=== PATIENT | female | born 1955 | race Caucasian/White ===

== ENCOUNTER 2017-03-23 00:35 | Emergency (ER) | payer BC ==
[~2017-03-23] VITALS: Ht 154.9 cm; Wt 65.0 kg
[~2017-03-23 00:35] MED LIST: DENO60SO INJ; DIPH25CA65 PO; EPP3/2 IM; ONDA8TAB62 SL; SUMA50TA15 PO; TYLOTC500 PO
[2017-03-23 00:47] VITALS: TEMP 36.6; Ht 154.9 cm; Wt 65.0 kg
[2017-03-23] MEDS ORDERED: XYLOCAINE 1%/SOD BICARB 20 ML VIAL INFIL ONE (01:15)
[2017-03-23] MEDS ORDERED: AMOXICILLIN 250 MG CAP PO ONE (02:30)
[2017-03-23] MEDS ORDERED: AMOX500C3 PO (02:35)
--- NOTE | 2017-03-23 02:51 | EMERGENCY ROOM VISIT NOTE ---
History First contact with patient: 00:45 Chief Complaint: LACERATION/CUT (SUT/DERMABOND) Stated Complaint: LACERATION Nursing Triage Summary: Patient was walking to bathroom from bed, her knee gave out, she hit the corner of a dresser and has a laceration to right forehead. Patient also having left knee pain. Patient denies LOC with fall. History of Present Illness The patient is a 61 year old female who presents to the Emergency Room with complaints of fall at home that occurred approximately one hour ago. The patient got out of bed to go to the bathroom, and states that her left knee gave out. She fell, and strike the corner of a dresser, causing injury to her right forehead. The patient did not have loss of consciousness with the event. She is not on blood thinners. She has not had chest pain, chest tightness, shortness of breath, palpitations, lightheadedness, or dizziness before or after the event. She rates her current discomfort a 5/10, primarily along the right side forehead where she does have a laceration. Review of Systems More than 10 systems were reviewed and otherwise negative with the exception of history of present illness. Past Medical/Surgical History Medical Problems: (1) Ambrosio's esophagus (2) Benign neoplasm of colon (3) Carcinoma of breast (4) Cervical cancer (5) Migraine headache with aura (6) Osteoporosis Surgical Problems: (1) H/O colonoscopy (2) H/O esophagogastroduodenoscopy (3) History of modified radical mastectomy (4) Hx laparoscopic cholecystectomy (5) S/P partial hysterectomy (6) S/P tonsillectomy and adenoidectomy Family History Asthma MOTHER Diabetes mellitus SISTER FH: cancer FATHER (prostate, colon CA) BROTHER (Lymphoma, T-cell) FH: heart disease SISTER (triple bypass) FHx: Crohn's disease Hypertension MOTHER Social History Smoking Status: Never Smoker Alcohol Use: none Drug Use: none Marital Status: Housing Status: lives with family Occupation Status: retired Current/Historical Medications Scheduled Amoxicillin (Amoxil), 500 MG PO TID Denosumab (Prolia), 1 DOSE INJ Q6MO Diphenhydramine Hcl (Benadryl Allergy), 50 MG PO UD Epinephrine (Epipen), 0.3 MG IM UD Sumatriptan Succinate (Imitrex), 1 TAB PO UD Scheduled PRN Acetaminophen (Tylenol), 500-1,000 MG PO Q6 PRN for Pain Ondansetron Odt (Zofran Odt), 8 MG SL Q6H PRN for Nausea Allergies Coded Allergies: Naproxen (Verified Allergy, Severe, lip swelling, 02/22/16) Pantoprazole (Verified Allergy, Severe, rash, 02/22/16) Fentanyl (Verified Allergy, Mild, 02/22/16) Aspirin (Verified Allergy, Unknown, 02/22/16) Opioid Analgesics (Verified Allergy, Unknown, UNKNOWN, 02/22/16) Physical Exam Vital Signs Date Time Temp Pulse Resp B/P (MAP) Pulse Ox O2 Delivery O2 Flow Rate FiO2 03/23/17 00:47 36.6 101 19 126/71 98 Room Air Physical Exam VITALS: Vitals are noted on the nurse's note and reviewed by myself. Vital signs stable. GENERAL: Well-developed, well-nourished, white female, who is in no acute distress and resting comfortably. Patient is cooperative with the examination. HEAD: Fairly linear 4.0 cm laceration to the right superior forehead. This does gape and will require repair. There is minimal, but controllable bleeding EARS: External ear normal. External auditory canals clear, tympanic membranes pearly rose without erythema or effusion bilaterally. EYES: Pupils equal round and reactive to light and accommodation. Conjunctivae without injection, sclerae without icterus. Extraocular movements intact. NOSE: Patent, turbinates without inflammation or discharge. MOUTH: Mucous membranes moist. Tonsils are not enlarged. Pharynx without erythema, blood, or exudate. Uvula midline. Airway patent. NECK: Supple without nuchal rigidity. No lymphadenopathy. No thyromegaly. Cervical spine is nontender. HEART: Regular rate and rhythm without murmurs gallops or rubs. LUNGS: Clear to auscultation bilaterally without wheezes, rales or rhonchi. No retractions or accessory muscle use. MUSCULOSKELETAL: Abrasion and edema appreciated to the lateral left knee. No laxity with varus and valgus maneuvers. Negative anterior/posterior drawer. No other extremity injury appreciated Medical Decision & Procedures ER Provider Diagnostic Interpretation: Preliminary Findings Only See Final Report For Complete Findings CT HEAD: No evidence of acute infarct, hemorrhage, mass or edema. No acute calvarial abnormality. Minimal mucosal thickening in the paranasal sinuses. The mastoid air cells are patent. Dermal defect noted about the right frontal scalp, likely post traumatic Medications Administered Medications (Trade) Dose Ordered Sig/Meena Route Start Time Stop Time Status Last Admin Dose Admin Amoxicillin (Amoxil Cap) 500 mg NOW ONCE PO 03/23/17 02:30 03/23/17 02:31 DC 03/23/17 02:21 500 MG Procedure Laceration repair. Patient elects to have their laceration repaired. Verbal consent was obtained to perform the procedure. There is an abundance of materials available for the procedure. Patient is not allergic to latex. Using sterile technique the wound was cleaned with Betadine. The area was sterilely draped. 7 ml of 1% buffered lidocaine was used to anesthetize the scalp laceration. Once the patient was anesthetized, the wound was copiously irrigated under pressure with sterile saline. The wound was explored and there were no deep structures injured such as tendons, bone, or significant blood vessels. The lateral superior aspect did penetrate deeply enough to reveal a small amount of the skull, and the patient will be started on antibiotics The laceration was repaired using 6 simple interrupted 6-0 nylon sutures with the wound edges being well approximated. Hemostasis was achieved. The area was cleaned with sterile saline and dressed with bacitracin ointment and bandage. Patient tolerated the procedure well without complications. Blood loss was negligible. ED Course Physical exam and history were performed. Nursing notes and EMR were reviewed. Patient appears to have fallen at home and suffered injury to her head and knee. She does have a laceration and is reportedly up-to-date on her tetanus. X- rays were performed of the left knee and reviewed by myself and my attending is showing no acute fracture or dislocation. CT scan was read as showing no acute bleed. The patient's laceration was repaired as above and she tolerated the procedure well. I do recommend the patient follow up with her primary care physician in the next few days for recheck following her fall. She will be given a course of amoxicillin as she is tolerated this well. This is given as prophylaxis as she did reveal part of the skull with her injury. The patient has multiple allergies to pain medications, and was asked to use over-the- counter Tylenol at home. The patient was pleased with this plan voiced understanding. The chart was completed utilizing [employer] Voice Recognition Software. Grammatical errors, random word insertions, pronoun errors, and incomplete sentences are an occasional consequence of this system due to software limitations, ambient noise, and hardware issues. Any formal questions or concerns about the content, text, or information contained within the body of this dictation should be directly addressed to the provider for clarification. . Medical Decision Etiologies such as laceration, mechanical fall, muscular skeletal injury, concussion, contusion, fracture, subdural hematoma, epidural hematoma, intraparenchymal hemorrhage, as well as other traumatic pathologies were entertained. Impression Primary Impression: Laceration of scalp Additional Impressions: Left knee injury Fall at home Departure Information Dispostion Home / Self-Care Condition GOOD Prescriptions Amoxicillin (AMOXIL) 500 Mg Cap 500 MG PO TID for 7 Days, #21 CAP Prov: Pranay Patterson PA-C 03/23/17 Referrals Thania Mina M.D. (PCP) Forms HOME CARE DOCUMENTATION FORM, IMPORTANT VISIT INFORMATION Patient Instructions [facility], ED Scar Tips to Minimize Additional Instructions You were seen and evaluated today on an emergency basis only. This is not a substitute for, or an effort to provide, complete comprehensive medical care. It is not possible to recognize and treat all injuries or illnesses in a single emergency department visit. For this reason it is recommended that you followup with your primary care physician next week for ongoing care and evaluation. Keep wound clean and dry. Do not allow any crusting or dried blood to accumulate on sutures. If this occurs, use a mild soap/water on a Q-tip to clean the wound. Do not use Peroxide to clean the wound as this can delay healing Use an antibiotic ointment like Bacitracin for 3-4 days, then let wound dry. You may bathe and shower as normal, but DO NOT SOAK the wound. Suture removal in about 5-7 days with your Family Doctor or in the ER. Return sooner for any signs of infection, increasing redness, swelling, or drainage. Take amoxicillin 500 mg 3 times daily to prevent infection You are welcome to return to the emergency department anytime with new, worsening, or concerning symptoms. Problem Qualifiers
[2017-03-23 02:57] VITALS: BP 142/86; PULSE 95; O2SAT 96
--- NOTE | 2017-03-23 06:27 | DIAGNOSTIC IMAGING REPORT ---
CT HEAD WITHOUT CONTRAST (CT) CLINICAL HISTORY: Fall. Head injury HEAD PAIN. FOR HEAD LACERATION. COMPARISON STUDY: 02/22/2016 TECHNIQUE: Axial CT of the brain is performed from the vertex to the skull base. IV contrast was not administered for this examination. CT DOSE: 638.56 mGycm FINDINGS: No intra or extra-axial mass lesions are visualized. There is no CT evidence of acute cortical infarction. There is no evidence of midline shift. There is no acute hemorrhage. No calvarial fractures are visualized. There are minimal white matter hypodensities likely on a small vessel basis. There is no evidence of pathologic ventricular dilatation. There is no evidence of acute sinusitis. There is a right frontal scalp laceration. IMPRESSION: No acute intracranial findings Electronically signed by: Randy Lima M.D. 03/23/2017 6:25 AM Dictated Date/Time: 03/23/2017 6:25 AM
--- NOTE | 2017-03-23 07:02 | DIAGNOSTIC IMAGING REPORT ---
LEFT KNEE 3 VIEWS CLINICAL HISTORY: Left knee pain status post trauma COMPARISON: None. DISCUSSION: There are moderate 3 compartment osteoarthritic changes. There is dorsal patellar spurring. There is a small joint effusion. No acute fractures are visualized. The bones are mildly osteopenic. IMPRESSION: Moderate osteoarthritic change. No acute fractures identified. Small joint effusion. Electronically signed by: Randy Lima M.D. 03/23/2017 7:01 AM Dictated Date/Time: 03/23/2017 7:00 AM
[2017-09-11] MEDS ORDERED: COLE1TAB5 PO (09:00)
[2017-09-11] MEDS ORDERED: CHOL1000 PO (09:00)
[2017-09-11] MEDS ORDERED: CALC500C73 PO (09:00)
[2017-09-11] MEDS ORDERED: METF500T PO (09:00)
[2017-09-11] MEDS ORDERED: AMT50 PO (09:00)
[2017-09-11] MEDS ORDERED: RABE20TA5 PO (09:00)
[2017-09-11] MEDS ORDERED: HYOS1TAB PO (09:00)
[2017-09-11] MEDS ORDERED: FLUT0.15 NAE (09:00)
[2017-09-11] MEDS ORDERED: METO-478 PO (10:51)
== END 2017-03-23 02:57 | disposition home or self-care (01) ==
LOC: C.EDB 00:36
DX: S01.01XA Laceration without foreign body of scalp, initial encounter (principal); S89.92XA Unspecified injury of left lower leg, initial encounter; W19.XXXA Unspecified fall, initial encounter; W22.09XA Striking against other stationary object, initial encounter; K22.70 Barrett's esophagus without dysplasia; Z85.3 Personal history of malignant neoplasm of breast; M81.0 Age-related osteoporosis without current pathological fracture; Z90.10 Acquired absence of unspecified breast and nipple; Z90.49 Acquired absence of other specified parts of digestive tract; Z90.710 Acquired absence of both cervix and uterus; Z83.3 Family history of diabetes mellitus; Z82.49 Family history of ischemic heart disease and other diseases of the circulatory system; Z82.5 Family history of asthma and other chronic lower respiratory diseases; Z80.42 Family history of malignant neoplasm of prostate; Z80.7 Family history of other malignant neoplasms of lymphoid, hematopoietic and related tissues; Z79.899 Other long term (current) drug therapy

== ENCOUNTER → 2017-09-11 | Day surgery (SDC) | payer BC ==
[~2017-09-11] VITALS: Ht 152.4 cm; Wt 64.0 kg
[~2017-09-11] MED LIST changes: +ACETAMINOPHEN 325 MG TAB PO PRN; +AMT50 PO; +ATROPINE SULFATE 0.1 MG/ML 5ML SYR IV PRN; +CALC500C73 PO; +CHOL1000 PO; +COLE1TAB5 PO; +FLUT0.15 NAE; +HEPARIN SOD (PORCINE) 1000 UNIT/ML 10 ML VIAL ONE; +HYOS1TAB PO; +METF500T PO; +METO-478 PO; +MIDAZOLAM HCL 1 MG/ML 2ML VIAL ONE; +NITROGLYCERIN/D5W 100MCG/ML 20ML SYR ONE; +NiCARDipine HCL INJ 2.5 MG/ML 10 ML AMP ONE; +ONDANSETRON INJ 2 MG/ML 2 ML VIAL IV PRN; +RABE20TA5 PO; +SODIUM CHLORIDE 0.9% 1000ML 250 ML IV PRN
[2017-09-11 08:47] VITALS: BP 136/76; PULSE 109; TEMP 36.7; O2SAT 97; Ht 152.4 cm; Wt 64.0 kg
--- NOTE | 2017-09-11 10:40 | Procedure Note ---
Pre-Mod Sedation Assessment General Date of Moderate Sedation: Sep 11, 2017. Vital Signs: Vital Signs Past 12 Hours Date Time Temp Pulse Resp B/P (MAP) Pulse Ox O2 Delivery O2 Flow Rate FiO2 09/11/17 08:47 36.7 109 16 136/76 97 Room Air Review Cardiovascular: regular rate, rhythm, + tachycardia Abdomen: normal bowel sounds, non tender, soft Lungs: chest non-tender, lungs clear Pre-Sedation Airway Assessment Oral Cavity: Dentures Short Thick Neck: No Hx of Sleep Apnea: No Smoking Status: Never Smoker Mallampati Classification: Class II ASA Classification: Class II Procedure Planning Contraindications-for Mod Sed: None Yes Notes The planned sedation has been discussed with the patient and consent obtained. I have identified the patient, determined the appropriateness of sedation and have assessed the patient immediately prior to the procedure. All medicine(s) and interventions are by my order.
--- NOTE | 2017-09-11 10:42 | Procedure Note ---
Post-Mod Sedation Assessment General Date of Moderate Sedation Sep 11, 2017. Vital Signs: Vital Signs Past 12 Hours Date Time Temp Pulse Resp B/P (MAP) Pulse Ox O2 Delivery O2 Flow Rate FiO2 09/11/17 08:47 36.7 109 16 136/76 97 Room Air Review - Discharge Criteria Vital Signs Stable: Yes Alert/Oriented/Conversant: Yes Returned to Baseline Mental St: Yes Nausea Absent/Minimal: Yes Pain/Discomfort/Absent/Minimal: Yes Normal/Baseline Respirations: Yes Active Bleeding?: No Pt Received D/C Instructions: Yes Prescriptions Given: Transmitted Specific Proced. D/C Criteria Distal Pulses Present (Cardiac: Yes Groin site assessed-Card Cath: Yes Voided Prior To Discharge: N/A Discharged Patients Adult Escort/Transportation: Yes
--- NOTE | 2017-09-11 10:50 | Cardiac Catheterization ---
Procedure Note Procedure Date Sep 11, 2017. 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 Start 1004. End 1035. 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 ACC Data Cardiac Status Clinical evaluation leading to the procedure CAD Presntation: Positive Stress Test Anginal Classification: CCS II Heart Failure: No Stress Testing w/SPECT MPI: Yes - Positive, Risk/Extent of Ischemia (High) Coronary Anatomy Dominant: Right Left Main (% Stenosis): Normal LAD (% Stenosis): Normal D1 (% Stenosis): Normal Circumflex (% Stenosis): Normal OM1 (% Stenosis): Normal OM2 (% Stenosis): Normal L PL1 (% Stenosis): Normal RCA (% Stenosis): Normal R PDA (% Stenosis): Normal R PL1 (% Stenosis): Normal R PL2 (% Stenosis): Normal Diagnostic Status: Elective Closure Device Percutaneous Entry Location: Radial Closure Device: Radial Band Recommendations: Medical therapy and/or Counseling Intraprocedure Events Significant Dissection: No Perforation: No
--- NOTE | 2017-09-11 10:52 | Discharge Instructions ---
Discharge Instructions Procedure Procedure Date: Sep 11, 2017. Reason for Visit: Abnormal Nuclear Stress Test Kopinski To Do. Discharge Discharge Date: Sep 11, 2017. Discharge Diagnosis: Normal coronary arteries Last Recorded Wt (Kilograms): 64 Anesthesia Post Anesthesia Instructions: If you have had General Anesthesia or IV Sedation: * Do not drive today. * Resume driving when surgeon permits. * Do not make important decisions or sign legal documents today. * Call surgeon for: 1. Temperature elevations greater than 101 degrees F. 2. Uncontrollable pain. 3. Excessive bleeding. 4. Persistent nausea and vomiting. 5. Medication intolerance (nausea, vomiting or rash). * For nausea and vomiting use only clear liquids such as: tea, soda, bouillon until nausea subsides, then gradually increase diet as tolerated. * If you have any concerns or questions, call your surgeon's office. If physician is unavailable and it is an emergency, call 911 or go to the nearest emergency room. Instructions Activity Recommendations: limitations as noted below Return to School/Work: with the following limitations Recommended Home Diet: low sodium Allergies: Coded Allergies: Naproxen (Verified Allergy, Severe, lip swelling, 02/22/16) Pantoprazole (Verified Allergy, Severe, rash, 02/22/16) Fentanyl (Verified Allergy, Mild, 02/22/16) Aspirin (Verified Allergy, Unknown, 02/22/16) Opioid Analgesics (Verified Allergy, Unknown, UNKNOWN, 02/22/16) Provider Instructions ACTIVITY RECOMMENDATIONS: Excess manipulation of the wrist should be avoided for the next 24-48 hours. * No lifting over 2 pounds (approximately a 1/2 gallon of milk) with the utilized arm for 24 hours. * No strenuous activity such as bowling or tennis for 3 days. * Keep the site of the procedure covered with a bandage for 24 hours. *You may shower the day after the procedure. Do not take a tub bath or submerge the puncture site in water for the next 3 days. *Do not operate any motorized equipment for 3 days. SPECIAL CARE INSTRUCTIONS: The site may be slightly bruised and sore following your procedure. Should any of the following occur, contact the Dr. who performed your procedure. 1. Redness/inflammation, swelling, chills, or fever, or colored drainage at procedure site within 3-7 days after your procedure. 2. Coldness, discoloration, ongoing numbness, severe pain, or swelling. Expect mild tingling of hand and tenderness at the puncture site for up to three days. If this persists beyond three days, or other symptoms develop, notify the Dr. who performed your procedure. BLEEDING: If the procedure site on your wrist begins to bleed, do not panic 1. Place 1 or 2 fingers firmly just slightly above the insertion site to stop the bleeding. You may be able to feel your pulse as you hold pressure. 2. Lift your finger after 5 minutes to see if the bleeding has stopped. 3. Once the bleeding has stopped, gently wipe the wrist area clean with a bandage. * If the bleeding from your wrist does not stop after 10 minutes, or if there is a large amount of bleeding or spurting, call 911 ([address] drive yourself to the hospital). SKIN IRRITATION: * You may experience some redness and/or swelling in the area where radiation was administered. If any skin irritation occurs, please contact your family physician. FOLLOW UP VISIT: Keep any scheduled doctor appointments. Follow Up Additional Instructions: New medication: Toprol XL 25mg daily. Follow-up with: Dr. Villarreal as scheduled. Arely Strickland Recommendations: Call your doctor if: * Temperature above 101 degrees * Pain not relieved by pain medicine ordered * There is increased drainage or redness from any incision * You have any unanswered questions or concerns. Your Doctors Instructions noted above were prepared by provider Javon Costa. Patient Signature Section: Patient Instructions Signature Page Yessy Brent Patient (or Guardian) Signature/Date: I have read and understand the instructions given to me by my caregivers. Caregiver/RN/Doctor Signature/Date: The above-named patient and/or guardian has received patient instructions on this date. + Original Patient Signature Page (only) stays with chart. Please make copy for patient.
[2017-09-11 13:00] VITALS: BP 135/46; PULSE 95; O2SAT 96
--- NOTE | 2017-09-11 16:33 | History & Physical Bridge Note ---
H&P Re-Evaluation Bridge Note: I have examined the patient, reviewed the History & Physical and in the interval since the performance of the History & Physical I have noted the following changes of clinical significance: No changes noted
== END | disposition home or self-care (01) ==
LOC: C.CATH 08:24
DX: I42.9 Cardiomyopathy, unspecified (principal); I44.7 Left bundle-branch block, unspecified; Z85.3 Personal history of malignant neoplasm of breast; Z90.89 Acquired absence of other organs; Z79.899 Other long term (current) drug therapy